=== PATIENT | female | born 1965 | race Caucasian/White ===

== ENCOUNTER 2023-07-24 14:53 | Outpatient (AMB) | payer BC, SELFPAY ==
--- NOTE | 2023-07-24 14:55 | MHC.OFFVIS ---
Intake Vital Signs 07/24/23 14:58 Height 5 ft 3 in Weight 214 lb BMI 37.9 BP 112/70 Blood Pressure Location Lt brachial Position Sitting Pulse 75 Pulse Source Pulse Oximeter Pulse Oximetry (%) 95 Oxygen Delivery Method Room Air Intake Visit Reasons: cough Body Cleaner Required: No Allergies erythromycin base Adverse Reaction (Severe, Verified 07/24/23 15:00) Stomach Upset HPI HPI Comments History of Present Illness Details The patient is here for pulmonary evaluation. The patient is a 58 year woman with a known history of nonischemic cardiomyopathy presenting with a worsening cough. Apparently the patient was in her usual state health until the last few months. The patient started developing some chest tightness and coughing. Nonproductive in nature. Moderate severity. Associated with some wheezing. She states that she does have a where congenital heart disease condition. Her ejection fraction has been stable 45-50%. The patient was referred to a heart failure specialist. Initially she had been on metoprolol 12.5 mg tolerating that then she was switched over to bisoprolol and for some reason she started developing some increasing cough and chest tightness. She felt that was the medication but she was not sure. The dose was similar. There both non selective beta blockers. Ultimately she was able to come off the bisoprolol and go back on the metoprolol and the patient has actually been feeling better. Meantime she was also started on Breo which she takes daily. She is wondering if she needs to continue the medication. The patient does have a rescue medication. the patient did undergo pulmonary function studies which I personally reviewed her there in the actually were reassuring. No evidence of any obstruction. In addition to that the patient has been complaining of increasing daytime drowsiness with an Bartow score that is elevated. With the underlying cardiac history the patient is referred for home sleep study. She did have it at [facility]. We did review the results the patient does have [id number] sleep apnea. In view of her cardiovascular risk factors and her ongoing symptoms of daytime drowsiness she needs to start CPAP therapy as well as possible. I will make arrangements for her to get a an APAP machine from local [email or web address]. The patient was wondering about how long to stay on the Breo. She does have a trip to [place] plan. The patient should continue the medication. Will also recommend starting Singulair. When she gets back from her trip she can start weaning down the Breo to off. She can use her rescue inhaler as needed hopefully she will not require any additional respiratory therapy. Will follow-up in 3 4 months with her CPAP to follow-up response to therapy. [facility] Medical History (Updated 07/26/23 @ 23:22 by Austin Johnson MD) Non-ischemic cardiomyopathy SHANNON (obstructive sleep apnea) Chronic cough Asthma Social History (Updated 07/24/23 @ 15:07 by LUIS Fabian) Patient Tobacco Use Status: Former Tobacco user Tobacco use type: Cigarette Years Smoked: 25 Years Review of Systems Const Reports daytime sleepiness, Reports snoring and Reports stops breathing during sleep Eyes Reports no additional complaints ENT Reports nasal congestion and Reports nasal discharge Card Denies chest pain Resp Reports cough, Reports snoring and Reports wheezing GI Reports no additional complaints Musc Reports no additional complaints Skin/Breast Denies rash Christiano/Lymph Denies lymphadenopathy Aller/Immun Reports wheezing Physical Exam Vital Signs: Last Vital Signs Pulse 75 07/24/23 14:58 BP 112/70 07/24/23 14:58 Pulse Ox 95 07/24/23 14:58 Oxygen Delivery Method Room Air 07/24/23 14:58 BMI result Body Mass Index 37.9 Const General: comfortable Orientation/consciousness: patient oriented x3 HEENT Head: Yes normocephalic Neck Neck: Yes supple Chest Chest palpation & inspection: normal inspection of the chest Resp Effort & Inspection: normal respiratory effort Auscultation: clear to auscultation bilaterally Cardio Heart sounds: S1 normal heart sound present and S2 normal heart sound present GI Palpation (GI): Soft to palpation Skin General skin exam: no rashes or lesions noted Neuro General: patient oriented x3 Extrem General: Yes no clubbing, cyanosis or edema Assessment & Plan Assessment & Plan (1) Asthma: Code(s): J45.909 - Unspecified asthma, uncomplicated Qualifiers: Asthma severity: moderate Asthma persistence: persistent Asthma complication type: uncomplicated Qualified Code(s): J45.40 - Moderate persistent asthma, uncomplicated (2) Chronic cough: Code(s): R05.3 - Chronic cough (3) SHANNON (obstructive sleep apnea): Code(s): G47.33 - Obstructive sleep apnea (adult) (pediatric) (4) Non-ischemic cardiomyopathy: Code(s): I42.8 - Other cardiomyopathies Plan Start Singulair at night Continue Breo daily until she returns from her trip to [place], then she can wean off LAURA as needed start Gabapentin 1-2 cap QHS for sleep Start APAP F/U 3-4 months with her PAP to assess Medications: New gabapentin 200 mg (2 x 100 mg) PO BEDTIME 30 days 60 caps 6RF montelukast (Singulair) 10 mg PO BEDTIME 30 days 30 tabs 11RF J45.909 - Unspecified asthma, uncomplicated Coding Level of Care Code New Pt Level 4 (08865) Diagnoses Moderate persistent asthma without complication J45.40 Asthma severity: moderate Asthma persistence: persistent Asthma complication type: uncomplicated Chronic cough R05.3 SHANNON (obstructive sleep apnea) G47.33 Non-ischemic cardiomyopathy I42.8 Time Spent (min) 40
[2023-07-24 14:58] VITALS: BP 112/70; PULSE 75; O2SAT 95; BMI 37.9
== END 2023-07-24 15:39 | disposition home or self-care (01) ==
PROVIDERS: PCP Physician Assistant Medical; Visit Provider Hospitalist
DX: J45.40 Moderate persistent asthma, uncomplicated (principal); R05.3 Chronic cough; G47.33 Obstructive sleep apnea (adult) (pediatric); I42.8 Other cardiomyopathies
CPT/HCPCS: 99204

== ENCOUNTER → 2023-07-24 14:53 | Outpatient (BNVA) | payer BC, SELFPAY | PROVIDERS: PCP Internal Medicine; Visit Provider Hospitalist ==

== ENCOUNTER 2023-11-03 11:13 | Outpatient (AMB) | payer BC, SELFPAY ==
[2023-11-03 11:17] VITALS: PULSE 88; O2SAT 97; BMI 38.8
--- NOTE | 2023-11-03 11:17 | MHC.OFFVIS ---
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 Apparently the patient was in her usual state health until the last few months. The patient started developing some chest tightness and coughing. Nonproductive in nature. Moderate severity. Associated with some wheezing. She states that she does have a where congenital heart disease condition. Her ejection fraction has been stable 45-50%. The patient was referred to a heart failure specialist. Initially she had been on metoprolol 12.5 mg tolerating that then she was switched over to bisoprolol and for some reason she started developing some increasing cough and chest tightness. She felt that was the medication but she was not sure. The dose was similar. There both non selective beta blockers. Ultimately she was able to come off the bisoprolol and go back on the metoprolol and the patient has actually been feeling better. Meantime she was also started on Breo which she takes daily. She is wondering if she needs to continue the medication. The patient does have a rescue medication. the patient did undergo pulmonary function studies which I personally reviewed her there in the actually were reassuring. No evidence of any obstruction. In addition to that the patient has been complaining of increasing daytime drowsiness with an [place] score that is elevated. With the underlying cardiac history the patient is referred for home sleep study. She did have it at [facility]. We did review the results the patient does have [id number] sleep apnea. In view of her cardiovascular risk factors and her ongoing symptoms of daytime drowsiness she needs to start CPAP therapy as well as possible. I will make arrangements for her to get a an APAP machine from local [employer]. The patient was wondering about how long to stay on the Breo. She does have a trip to [place] plan. The patient should continue the medication. Will also recommend starting Singulair. When she gets back from her trip she can start weaning down the Breo to off. She can use her rescue inhaler as needed hopefully she will not require any additional respiratory therapy. Will follow-up in 3 4 months with her CPAP to follow-up response to therapy. 11/03/2023 the patient is here for a pulmonary follow-up visit. Overall she is doing very well. She did get the CPAP. The CPAP therapy has been affecting beneficial. She does use it every night for more than 4 hours a night. She does feel better and she is having less daytime drowsiness. She has not having any significant snoring. She does use a nasal mask and is irritating her face. We did talk about try any P 10 nasal pillows. I think she will do better with that. She has ear piercing so we have to just see how she does with that. The patient has an AHI now of 0.6 which is reassuring. Her average pressure is around 9 cm pressure. As far as her asthma seems to be well-controlled. She has no longer needs the maintenance inhaler. She did get the Singulair but she did not take it because she was not sure what it was. I reassured her that it was for her allergic asthma. She is going to take it for now and then she is going to uses seasonally when her allergies are more significant. Otherwise patient is without other complaints. She will follow-up in a year's time. [facility] Medical History (Updated 11/03/23 @ 22:42 by Austin Johnson MD) Non-ischemic cardiomyopathy SHANNON (obstructive sleep apnea) Chronic cough Asthma Social History (Updated 07/24/23 @ 15:07 by LUIS Fabian) Patient Tobacco Use Status: Former Tobacco user Tobacco use type: Cigarette Years Smoked: 25 Years Review of Systems Const Reports daytime sleepiness Eyes Reports no additional complaints ENT Reports nasal congestion and Reports nasal discharge Card Denies chest pain Resp Reports cough and Denies wheezing GI Reports no additional complaints Musc Reports no additional complaints Skin/Breast Denies rash Christiano/Lymph Denies lymphadenopathy Aller/Immun Denies wheezing Physical Exam Vital Signs: Last Vital Signs Pulse 88 11/03/23 11:17 Pulse Ox 97 11/03/23 11:17 Oxygen Delivery Method Room Air 11/03/23 11:17 BMI result Body Mass Index 38.8 Const General: comfortable Orientation/consciousness: patient oriented x3 HEENT Head: Yes normocephalic Neck Neck: Yes supple Chest Chest palpation & inspection: normal inspection of the chest Resp Effort & Inspection: normal respiratory effort Auscultation: clear to auscultation bilaterally Cardio Heart sounds: S1 normal heart sound present and S2 normal heart sound present GI Palpation (GI): Soft to palpation Skin General skin exam: no rashes or lesions noted Neuro General: patient oriented x3 Extrem General: Yes no clubbing, cyanosis or edema Assessment & Plan Assessment & Plan (1) Asthma: Code(s): J45.909 - Unspecified asthma, uncomplicated Category: Medical Qualifiers: Asthma complication type: uncomplicated Asthma persistence: intermittent Asthma severity: mild Qualified Code(s): J45.20 - Mild intermittent asthma, uncomplicated (2) Chronic cough: Code(s): R05.3 - Chronic cough Category: Medical (3) SHANNON (obstructive sleep apnea): Code(s): G47.33 - Obstructive sleep apnea (adult) (pediatric) Category: Medical (4) Non-ischemic cardiomyopathy: Code(s): I42.8 - Other cardiomyopathies Category: Medical Plan restart Singulair at night LAURA as needed stopped Gabapentin 1-2 cap QHS for sleep continue APAP F/U 12 month Coding Level of Care Code Est Pt Level 4 (92989) Diagnoses Mild intermittent asthma without complication J45.20 Asthma complication type: uncomplicated Asthma persistence: intermittent Asthma severity: mild Chronic cough R05.3 SHANNON (obstructive sleep apnea) G47.33 Non-ischemic cardiomyopathy I42.8 Time Spent (min) 16
== END 2023-11-03 11:53 | disposition home or self-care (01) ==
PROVIDERS: PCP Physician Assistant Medical; Visit Provider Hospitalist
DX: J45.20 Mild intermittent asthma, uncomplicated (principal); R05.3 Chronic cough; G47.33 Obstructive sleep apnea (adult) (pediatric); I42.8 Other cardiomyopathies
CPT/HCPCS: 99214

== ENCOUNTER → 2023-11-03 11:13 | Outpatient (BNVA) | payer BC, SELFPAY | PROVIDERS: PCP Physician Assistant Medical; Visit Provider Hospitalist | DX: J45.909 Unspecified asthma, uncomplicated (principal) ==

== ENCOUNTER 2025-03-03 08:48 | Outpatient (AMB) | payer BC, SELFPAY ==
--- NOTE | 2025-03-03 08:49 | MHC.OFFVIS ---
Vital Signs 03/03/25 08:50 Height 5 ft 3 in Weight 241 lb 6.499 oz BMI 42.8 BP 120/64 Blood Pressure Location Lt brachial Position Sitting Pulse 74 Pulse Source Pulse Oximeter Pulse Oximetry (%) 95 Oxygen Delivery Method Room Air Intake Visit Reasons: cough Site Inspector Required: No Accompanied by: Self / Same As Patient Allergies bee pollen (bee stings) Allergy (Severe, Verified 03/03/25 08:56) Anaphylaxis Iodinated Contrast Media (IV Contrast Dye) Allergy (Severe, Verified 03/03/25 08:56) pain erythromycin base Adverse Reaction (Severe, Verified 11/03/23 11:18) Stomach Upset HPI Comments Details: The patient is a 59 year woman with a known history of nonischemic cardiomyopathy presenting with a worsening cough. Apparently the patient was in her usual state health until the last few months. The patient started developing some chest tightness and coughing. Nonproductive in nature. Moderate severity. Associated with some wheezing. She states that she does have a where congenital heart disease condition. Her ejection fraction has been stable 45-50%. The patient was referred to a heart failure specialist. Initially she had been on metoprolol 12.5 mg tolerating that then she was switched over to bisoprolol and for some reason she started developing some increasing cough and chest tightness. She felt that was the medication but she was not sure. The dose was similar. There both non selective beta blockers. Ultimately she was able to come off the bisoprolol and go back on the metoprolol and the patient has actually been feeling better. Meantime she was also started on Breo which she takes daily. She is wondering if she needs to continue the medication. The patient does have a rescue medication. the patient did undergo pulmonary function studies which I personally reviewed her there in the actually were reassuring. No evidence of any obstruction. In addition to that the patient has been complaining of increasing daytime drowsiness with an [place] score that is elevated. With the underlying cardiac history the patient is referred for home sleep study. She did have it at [facility]. We did review the results the patient does have [id number] sleep apnea. In view of her cardiovascular risk factors and her ongoing symptoms of daytime drowsiness she needs to start CPAP therapy as well as possible. I will make arrangements for her to get a an APAP machine from local DME company. The patient was wondering about how long to stay on the Breo. She does have a trip to [place] plan. The patient should continue the medication. Will also recommend starting Singulair. When she gets back from her trip she can start weaning down the Breo to off. She can use her rescue inhaler as needed hopefully she will not require any additional respiratory therapy. Will follow-up in 3 4 months with her CPAP to follow-up response to therapy. 11/03/2023 the patient is here for a pulmonary follow-up visit. Overall she is doing very well. She did get the CPAP. The CPAP therapy has been affecting beneficial. She does use it every night for more than 4 hours a night. She does feel better and she is having less daytime drowsiness. She has not having any significant snoring. She does use a nasal mask and is irritating her face. We did talk about try any P 10 nasal pillows. I think she will do better with that. She has ear piercing so we have to just see how she does with that. The patient has an AHI now of 0.6 which is reassuring. Her average pressure is around 9 cm pressure. As far as her asthma seems to be well-controlled. She has no longer needs the maintenance inhaler. She did get the Singulair but she did not take it because she was not sure what it was. I reassured her that it was for her allergic asthma. She is going to take it for now and then she is going to uses seasonally when her allergies are more significant. Otherwise patient is without other complaints. She will follow-up in a year's time. 03/03/2025 the patient is here for pulmonary follow-up visit. Overall the patient has been doing well. She has been using her CPAP every night. CPAP therapy has been affecting beneficial. AHI is down to 0.7. She is using a nasal mask. She did try the nasal pillows but it was hurting her nose. No significant air leakage through the mouth. The patient is getting supplies through her [employer] company, [employer]. I will send a script for additional supplies. From an asthma standpoint she is doing well. She is now on Breo 100 and she is tolerating it well. She does use it daily. She has not had to use his rescue inhaler. She stopped using the Singulair. The patient is also participating in the lung cancer screening program. We did look at the last CT scan that she had back in February 2024 in [place]. I personally reviewed the images demonstrating a 5 mm pulmonary nodule in the fissure on the right hemithorax. This is consistent with a benign process likely a lymph node. She is scheduled to have a repeat CAT scan as part of the lung cancer screening program in the coming weeks. She can always let me know so I can look at it and make sure that is stable. Otherwise the patient is doing well will follow-up in a year's time if she has any issues prior to the next visit she can always call for further recommendations. [facility] Medical History (Updated 11/03/23 @ 22:42 by Austin Johnson MD) Non-ischemic cardiomyopathy SHANNON (obstructive sleep apnea) Chronic cough Asthma Social History Patient Tobacco Use Status: Former Tobacco user Tobacco use type: Cigarette Years Smoked: 25 Years Review of Systems Const Denies daytime sleepiness Eyes Reports no additional complaints ENT Reports nasal congestion and Reports nasal discharge Card Denies chest pain Resp Reports cough and Denies wheezing GI Reports no additional complaints Musc Reports no additional complaints Skin/Breast Denies rash Neuro Reports no additional complaints Endo Reports no additional complaints Christiano/Lymph Denies lymphadenopathy Aller/Immun Denies wheezing Physical Exam Vital Signs: Last Vital Signs Pulse 74 03/03/25 08:50 BP 120/64 03/03/25 08:50 Pulse Ox 95 03/03/25 08:50 Oxygen Delivery Method Room Air 03/03/25 08:50 BMI result Body Mass Index 42.8 Const General: comfortable Orientation/consciousness: patient oriented x3 HEENT Head: Yes normocephalic Neck Neck: Yes supple Chest Chest palpation & inspection: normal inspection of the chest Resp Effort & Inspection: normal respiratory effort Auscultation: clear to auscultation bilaterally Cardio Heart sounds: S1 normal heart sound present and S2 normal heart sound present GI Palpation (GI): Soft to palpation Skin General skin exam: no rashes or lesions noted Neuro General: patient oriented x3 Extrem General: Yes no clubbing, cyanosis or edema Assessment & Plan Assessment & Plan (1) Asthma: Code(s): J45.909 - Unspecified asthma, uncomplicated Category: Medical Qualifiers: Asthma complication type: uncomplicated Asthma persistence: intermittent Asthma severity: mild Qualified Code(s): J45.20 - Mild intermittent asthma, uncomplicated (2) Chronic cough: Code(s): R05.3 - Chronic cough Category: Medical (3) SHANNON (obstructive sleep apnea): Code(s): G47.33 - Obstructive sleep apnea (adult) (pediatric) Category: Medical (4) Non-ischemic cardiomyopathy: Code(s): I42.8 - Other cardiomyopathies Category: Medical Plan stopped Singulair at night LAURA as needed continue Breo 100 daiy continue APAP (APRIA) 6-12 F/U 12 month Coding Level of Care Code Est Pt Level 4 (54191) Diagnoses Mild intermittent asthma without complication J45.20 Asthma complication type: uncomplicated Asthma persistence: intermittent Asthma severity: mild Chronic cough R05.3 SHANNON (obstructive sleep apnea) G47.33 Non-ischemic cardiomyopathy I42.8 Time Spent (min) 17
[2025-03-03 08:50] VITALS: BP 120/64; PULSE 74; O2SAT 95; BMI 42.8
--- OUTSIDE RECORDS SUMMARY | 2025-03-03 09:07 | XMS_ITS | Encounter Summary ---
Author Organization [facility] Address [address] [place] [address] Care Team Providers Care Administrative Support Specialist Name Role Phone uAdra Roca PA-C Primary Care Provi narciso Marixa Rothman SADDLE MECHANIC Unavailable Carlos Vasquez MD Unavailable Unavailable Encounter Details Date Type Department Care Team (Late st Contact Info) Description 07/07/2023 Scanned Document [address] [phone] Primary Care, Scan Social History Tobacco Use Types Packs/Day Years Used Date Smoking Tobacco: Former Cigarettes Smokeless Tobacco: Former Alcohol Use Standard Drinks/Week Comments Yes 0 (1 standard drink = 0.6 oz pur e alcohol) PHQ-2 Answer Date Recorded PHQ-2 Total Score 2 06/26/2023 Comments Unknown Sex and Gender Information Value Date Recorded Sex Assigned at Female 06/15/2023 3:57 PM EST Legal Sex Female 9:58 AM EST Gender Identity Female 06/15/2023 3:57 PM EST Sexual Orientation Heterosexual (straight) 06/15 3:57 PM EST documented as of this encounter Plan of Treatment Upcoming Encounters Date Type Department Care Team (Late st Contact Info) Description 06/05/2025 9:30 AM EST Office Visit [address] [phone] Audra Roca PA-C [address] [place] [id number] 01/08/2026 8:30 AM EDT Office Visit [facility] [address] [place] [address] Audra Roca PA-C [address] [place] [address] documented as of this encounter Visit Diagnoses Not on filedocumented in this encounter Care Teams Administrative Support Specialist Relationship Specialty Start Date End Date Audra Roca PA-C [address] [place] [address] PCP - General Internal Medicine 06/26/23 Marixa Rothman NP [facility] [address] [place] [address] Referring Provider 10/26/23 Carlos Vasquez MD [facility] [address] [place] [address] Referring Provider Gastroenterology 10/26/23 Sandra Thurston Physician Cardiology-Scan 10/19/23 documented as of this encounter
--- OUTSIDE RECORDS SUMMARY | 2025-03-03 09:07 | XMS_ITS | Continuity of Care Document ---
Author Organization [facility] Address [address] [facility] [address] [place] [id number] Insurance Providers Payer Plan Claims Address Claims Phone Policy Number Group Number Relation Employer Guarantor Name Guarantor Guarantor Address Guarantor Phone [employer] [address], [place] [id number] Self Rebecca Rolle 1965 [address] [address] [employer] [address], [place] [address] [id number] Spouse Unknown Unknown [address] [place], [place] [address] PPO [address], [place] [address] [id number] Self Rebecca Rolle 1965 [address] [place] [address] Problems Unknown Problems Results Test Result Date/Time Value / Unit Interp. Refere nce Range Comp. Metabolic Panel (14)[3 [id number]] Collected: 06/02/2024 09:13 PM Specimen Received: 06/02/2024 05:00 AM Source: [facility] Glucose [[id number]] 06/13/2024 08:28 PM TNP mg/dL [facility] was unable to collec t sufficient specimen to perform thefollowing test(s), and is providing the patient with re-collectioninstructions. BUN [[id number]] 06/13/2024 08:28 PM TNP Test not performed Creatinine [[id number]] 06/13/2024 08:28 PM TNP Test not performed Sodium [[id number]] 06/13/2024 08:28 PM TNP Test not performed Potassium [[id number]] 06/13/2024 08:28 PM TNP Test not performed Chloride [[id number]] 06/13/2024 08:28 PM TNP Test not performed Carbon Dioxide, Total [265981] 06/13/2024 08:28 PM TNP Test not performed Calcium [120878] 06/13/2024 08:28 PM TNP Test not performed Protein, Total [[id number]] 06/13/2024 08:28 PM TNP Test not performed Albumin [238612] 06/13/2024 08:28 PM TNP Test not performed Bilirubin, Total [756959] 06/13/2024 08:28 PM TNP Test not performed Alkaline Phosphatase [420428] 06/13/2024 08:28 PM TNP Test not performed AST (SGOT) [[id number]] 06/13/2024 08:28 PM TNP Test not performed ALT (SGPT) [[id number]] 06/13/2024 08:28 PM TNP Test not performed Lipid Panel[[id number]] Collected: 06/02/2024 09:13 PM Specimen Received: 06/02/2024 05:00 AM Source: [facility] Cholesterol, Total [[id number]] 06/13/2024 08:28 PM TNP mg/dL [facility] was unable to collec t sufficient specimen to perform thefollowing test(s), and is providing the patient with re-collectioninstructions. Triglycerides [088072] 06/13/2024 08:28 PM TNP Test not performed HDL Cholesterol [[id number]] 06/13/2024 08:28 PM TNP Test not performed VLDL Cholesterol Leon [[id number]] 06/13/2024 08:28 PM TNP mg/dL Unable to calculate result s arlyn non-numeric result obtained forcomponent test. Hemoglobin A1c[[id number]] Collected: 06/02/2024 09:13 PM Specimen Received: 06/02/2024 05:00 AM Source: [facility] Hemoglobin A1c [[id number]] 06/04/2024 02:44 PM TNP % [facility] was unable to collec t sufficient specimen to perform thefollowing test(s), and is providing the patient with re-collectioninstructions. . Prediabetes: 5.7 - 6.4 Diabetes: >6.4 Glycemic control for adults with diabetes: 7.0 Request Problem[[id number]] Collected: 06/02/2024 09:13 PM Specimen Received: 06/02/2024 05:00 AM Source: [facility] Request Problem [[id number]] 06/04/2024 02:44 PM TNP [facility] was unable to collec t sufficient specimen to perform thefollowing test(s), and is providing the patient with re-collectioninstructions. TEST: [id number] Hemoglobin A1c Request Problem[[id number]] Collected: 06/02/2024 09:13 PM Specimen Received: 06/02/2024 05:00 AM Source: [facility] Request Problem [[id number]] 06/13/2024 08:28 PM TNP [facility] was unable to collec t sufficient specimen to perform thefollowing test(s), and is providing the patient with re-collectioninstructions. TEST: [id number] Comp. Metabolic Panel (14) [id number] Lipid Panel Allergies, adverse reactions, alerts No known allergies and adverse reactions Medications No administered medications reported Vital Signs No vital signs reported Social History No smoking Hx information available
--- OUTSIDE RECORDS SUMMARY | 2025-03-03 09:07 | XMS_ITS | Continuity of Care Document ---
Author Organization [facility] [address] [place] [address] Phone [phone] Care Team Providers Care Surveyor Geodetic Name Role Phone Audra Roca Care Team Information Re ceiver [phone] Social History Type Date Description Comments Sex Female Sex Unknown Medical Devices Description No Information Available Encounters Description No Information Available Assessments Description No Information Available Plan of Treatment No Information Available Functional Status Description No Information Available Mental Status Description No Information Available Referrals Description No Information Available
--- OUTSIDE RECORDS SUMMARY | 2025-03-03 09:07 | XMS_ITS | Continuity of Care Document ---
Author Organization [facility] Address [address] [facility] [address] [place] [id number] Insurance Providers Payer Plan Claims Address Claims Phone Policy Number Group Number Relation Employer Guarantor Name Guarantor Guarantor Address Guarantor Phone [employer] [address], [place] [id number] Self Rebecca Rolle 1965 [address] [place] [address] [employer] - [place] [address], [place] [address] [id number] 1 Spouse Unknown Unknown [address] [place] [address], [place] [address] PPO [address], [place] [address] [id number] Self Rebecca Rolle 1965 [address] [place] [address] Problems Unknown Problems Results Test Result Date/Time Value / Unit Interp. Refere nce Range Comp. Metabolic Panel (14)[3 [id number]] Collected: 06/02/2024 09:13 PM Specimen Received: 06/02/2024 05:00 AM Source: [facility] Glucose [[id number]] 06/13/2024 08:28 PM TNP mg/dL [facility] was unable to collec t sufficient specimen to perform thefollowing test(s), and is providing the patient with re-collectioninstructions. BUN [[id number]] 06/13/2024 08:28 PM TNP Test not performed Creatinine [[id number]] 06/13/2024 08:28 PM TNP Test not performed Sodium [[id number]] 06/13/2024 08:28 PM TNP Test not performed Potassium [[id number]] 06/13/2024 08:28 PM TNP Test not performed Chloride [[id number]] 06/13/2024 08:28 PM TNP Test not performed Carbon Dioxide, Total [239452] 06/13/2024 08:28 PM TNP Test not performed Calcium [557216] 06/13/2024 08:28 PM TNP Test not performed Protein, Total [858566] 06/13/2024 08:28 PM TNP Test not performed Albumin [410776] 06/13/2024 08:28 PM TNP Test not performed Bilirubin, Total [527315] 06/13/2024 08:28 PM TNP Test not performed Alkaline Phosphatase [018768] 06/13/2024 08:28 PM TNP Test not performed AST (SGOT) [348220] 06/13/2024 08:28 PM TNP Test not performed ALT (SGPT) [438046] 06/13/2024 08:28 PM TNP Test not performed Lipid Panel[[id number]] Collected: 06/02/2024 09:13 PM Specimen Received: 06/02/2024 05:00 AM Source: [facility] Cholesterol, Total [[id number]] 06/13/2024 08:28 PM TNP mg/dL [facility] was unable to collec t sufficient specimen to perform thefollowing test(s), and is providing the patient with re-collectioninstructions. Triglycerides [977316] 06/13/2024 08:28 PM TNP Test not performed HDL Cholesterol [[id number]] 06/13/2024 08:28 PM TNP Test not performed VLDL Cholesterol Leon [[id number]] 06/13/2024 08:28 PM TNP mg/dL Unable to calculate result s arlyn non-numeric result obtained forcomponent test. Hemoglobin A1c[[id number]] Collected: 06/02/2024 09:13 PM Specimen Received: 06/02/2024 05:00 AM Source: [facility] Hemoglobin A1c [[id number]] 06/04/2024 02:44 PM TNP % [facility] was unable to collec t sufficient specimen to perform thefollowing test(s), and is providing the patient with re-collectioninstructions. . Prediabetes: 5.7 - 6.4 Diabetes: >6.4 Glycemic control for adults with diabetes: 7.0 Request Problem[[id number]] Collected: 06/02/2024 09:13 PM Specimen Received: 06/02/2024 05:00 AM Source: [facility] Request Problem [[id number]] 06/04/2024 02:44 PM TNP [facility] was unable to collec t sufficient specimen to perform thefollowing test(s), and is providing the patient with re-collectioninstructions. TEST: [id number] Hemoglobin A1c Request Problem[[id number]] Collected: 06/02/2024 09:13 PM Specimen Received: 06/02/2024 05:00 AM Source: [facility] Request Problem [[id number]] 06/13/2024 08:28 PM TNP [facility] was unable to collec t sufficient specimen to perform thefollowing test(s), and is providing the patient with re-collectioninstructions. TEST: [id number] Comp. Metabolic Panel (14) [id number] Lipid Panel Allergies, adverse reactions, alerts No known allergies and adverse reactions Medications No administered medications reported Vital Signs No vital signs reported Social History No smoking Hx information available
--- OUTSIDE RECORDS SUMMARY | 2025-03-03 09:07 | XMS_ITS | Encounter Summary ---
Author Organization [facility] Address [address] [place] [address] Care Team Providers Care Director Of Science Name Role Phone Pcp, No Primary Care Provider Audra Johnson PA-C Primary Care Provi narciso Marixa Rothman NP Unavailable Carlos Vasquez MD Unavailable Unavailable Encounter Details Date Type Department Care Team (Late st Contact Info) Description 06/15/2023 Telephone [facility] [address] [place] [address] Pcp, No Social History Tobacco Use Types Packs/Day Years Used Date Smoking Tobacco: Never Assessed Comments Unknown Sex and Gender Information Value Date Recorded Sex Assigned at Female 06/15/2023 3:57 PM EST Legal Sex Female 9:58 AM EST Gender Identity Female 06/15/2023 3:57 PM EST Sexual Orientation Heterosexual (straight) 06/15 3:57 PM EST documented as of this encounter Miscellaneous Notes * Telephone Encounter - Della Bro - 06/16/2023 2:45 PM EST Pt called she did call the other office and she will be getting a nebulizer. Pt cannot go on my chart because she has not seen you yet. She said thank you * Telephone Encounter - Mandy Ingram - 06/15/2023 12:41 PM EST Pt also called regarding missed call by Audra * Telephone Encounter - Paradise Ruano - 06/15/2023 10:58 AM EST Spoke pt, I advised her to contact Audra's old office until she is seen. Pt declined she stated she doesn't want to contact them if she doesn't have to. She stated she will reach out to her cardio provider and will follow up with UC until she is seen on 06/26 documented in this encounter Plan of Treatment Upcoming Encounters Date Type Department Care Team (Late st Contact Info) Description 06/05/2025 9:30 AM EST Office Visit [address] [phone] Audra Roca PA-C [address] [place] [address] 01/08/2026 8:30 AM EDT Office Visit [address] [phone] Audra Roca PA-C [address] [place] [address] documented as of this encounter Visit Diagnoses Not on filedocumented in this encounter Care Teams Director Of Science Relationship Specialty Start Date End Date Pcp, No PCP - General General Medicine 06/15/23 06/25/23 Audra Roca PA-C [address] [place] [address] PCP - General Internal Medicine 06/26/23 Marixa Rothman NP [address] [address] Referring Provider 6/3/24 Carlos Vasquez MD [address] [place] [address] Referring Provider Gastroenterology 10/26/23 Sandra Thurston Physician Cardiology-Scan 10/19/23 documented as of this encounter
--- OUTSIDE RECORDS SUMMARY | 2025-03-03 09:07 | XMS_ITS | Encounter Summary ---
Author Organization [facility] Address [address] [place] [address] Care Team Providers Care Accounting Manager Assistant Controller Name Role Phone Audra Roca PA-C Primary Care Provi narciso Marixa Rothman NP Unavailable Carlos Vasquez MD Unavailable Unavailable Encounter Details Date Type Department Care Team (Late st Contact Info) Description 10/26/2023 Scanned Document [facility] PRIMARY CARE SCAN Primary Care, Scan Social History Tobacco Use Types Packs/Day Years Used Date Smoking Tobacco: Former Cigarettes 1 20 Smokeless Tobacco: Former Comments:Quit 15 yr- 20+ pac k year Alcohol Use Standard Drinks/Week Comments Yes 0 (1 standard drink = 0.6 oz pur e alcohol) PHQ-2 Answer Date Recorded PHQ-2 Total Score 2 10/26/2023 Physical Activity Answer Date Recorded On average, how many days pe r week do you engage in moderate to strenuous exercise (like a brisk walk)? 7 days 10/26/2023 On average, how many minutes do you exercise per day at this level? 30 min 10/26/2023 Comments No Sex and Gender Information Value Date Recorded Sex Assigned at Female 06/15/2023 3:57 PM EST Legal Sex Female 9:58 AM EST Gender Identity Female 06/15/2023 3:57 PM EST Sexual Orientation Heterosexual (straight) 06/15 3:57 PM EST documented as of this encounter Functional Status * Question Answer Date of Assessment Author Feeling nervous, anxious, or on edge 1 10/26/2023 8:22 AM EDT Elsy Brown MA Not being able to stop or co ntrol worrying 0 10/26/2023 8:22 AM MATIAST Elsy Brown MA Worrying too much about diff erent things 0 10/26/2023 8:22 AM MATIAST Elsy Brown MA Trouble relaxing 0 10/26/2023 8:22 AM EDT Elsy Prather MA Being so restless that it is hard to sit still 1 10/26/2023 8:22 AM MATIAST Elsy Brown MA Becoming easily annoyed or irritable 0 10/26/2023 8:22 AM MATIAST Elsy Brown MA Feeling afraid as if somethi ng awful might happen 1 10/26/2023 8:22 AM MATIAST Elsy Brown MA * Over the past 2 weeks, how often have you been bothered by any of the following problems? Question Answer Date of Assessment Author Patient Health Questionnaire -2 Score 2 10/26/2023 8:21 AM Elsy Slater MA * Question Answer Date of Assessment Author Patient Health Questionnaire -9 Score 5 10/26/2023 8:21 AM Elsy Slater MA * Over the last 2 weeks, how often have you been bothered by any of the following problems? Question Answer Date of Assessment Author SANDOVAL-7 Total Score 3 10/26/2023 8:22 AM Elsy Slater MA * Question Answer Date of Assessment Author PHQ-2 Total Score 2 10/26/2023 8:21 AM Elsy Slater MA Little interest or pleasure in doing things Several days 10/26/2023 8:21 AM MATIAST Sa katharina Brown MA Feeling down, depressed, or hopeless Several days 10/26/2023 8:21 AM Elsy Slater MA Trouble falling or staying asleep, or sleeping too much Not at all 10/26/2023 8:21 AM Elsy Slater MA Feeling tired or having little energy Several days 10/26/2023 8:21 AM Elsy Slater MA Poor appetite or overeating Several days 10/26/2023 8:21 AM Elsy Slater MA Feeling bad about yourself - or that you are a failure or have let yourself or your family down Not at all 10/26/2023 8:21 AM MATIAST Elsy Brown MA Trouble concentrating on things, such as reading the newspaper or watching television Several days 10/26/2023 8:21 AM MATIAST Elsy Brown MA Moving or speaking so slowly that other people could have noticed? Or the opposite - being so fidgety or restless that you have been moving around a lot more than usual. Not at all 10/26/2023 8:21 AM MATIAST Elsy Brown MA Thoughts that you would be better off or hurting yourself in some way Not at all 10/26/2023 8:21 AM MATIAST Elsy Brown MA How difficult have these problems made it for you to do your work, take care of things at home, or get along with other people? Somewhat difficult 10/26/2023 8:21 AM MATIAST Elsy Brown MA PHQ-9 Total Score 5 10/26/2023 8:21 AM MATIAST Elsy Brown MA documented as of this encounter Plan of Treatment Upcoming Encounters Date Type Department Care Team (Late st Contact Info) Description 06/05/2025 9:30 AM EST Office Visit [address] [phone] Audra Roca PA-C [address] [place] [address] 01/08/2026 8:30 AM EDT Office Visit [address] [phone] Audra Roca PA-C [address] [place] [address] documented as of this encounter Visit Diagnoses Not on filedocumented in this encounter Care Teams Accounting Manager Assistant Controller Relationship Specialty Start Date End Date Audra Roca PA-C [address] [place] [address] PCP - General Internal Medicine 06/26/23 Marixa Rothman NP [address] [facility] [address] [place] [address] Referring Provider 10/26/23 Carlos Vasquez MD [address] [facility] [address] [place] [address] Referring Provider Gastroenterology 10/26/23 Sandra Thurston Physician Cardiology-Scan 10/19/23 documented as of this encounter
--- OUTSIDE RECORDS SUMMARY | 2025-03-03 09:07 | XMS_ITS | Encounter Summary ---
Author Organization [facility] Address [address] [place] [address] Care Team Providers Care Courier Delivery Driver Name Role Phone Audra Roca PA-C Primary Care Provi narciso Marixa Rothman VAMP PRESSER Unavailable Carlos Vasquez MD Unavailable Unavailable Encounter Details Date Type Department Care Team (Late st Contact Info) Description 07/07/2023 Scanned Document [address] [phone] Primary Care, Scan Social History Tobacco Use [...] Description 06/05/2025 9:30 AM EST Office Visit [address] [phone] Audra Roca PA-C [address] [place] [address] 01/08/2026 8:30 AM EDT Office Visit [facility] [place] [facility] [address] [place] [address] Audra Roca PA-C [address] [place] [address] documented as of this encounter Visit Diagnoses Not on filedocumented in this encounter Care Teams Courier Delivery Driver Relationship Specialty Start Date End Date Audra Roca PA-C [address] [place] [address] PCP - General Internal Medicine 06/26/23 Marixa Rothman NP 836 [facility] [address] [place] [address] Referring Provider 10/26/23 Carlos Vasquez MD 836 [facility] [address] [place] [address] Referring Provider Gastroenterology 10/26/23 Sandra Thurston Physician Cardiology-Scan 10/19/23 documented as of this encounter
--- OUTSIDE RECORDS SUMMARY | 2025-03-03 09:07 | XMS_ITS | Encounter Summary ---
Author Organization [facility] Address [address] [place] [address] Care Team Providers Care Human Services Care Specialist Name Role Phone Pcp, No Primary Care Provider Audra Johnson PA-C Primary Care Provi narciso Marixa Rothman GEEK SQUAD MANAGER Unavailable Carlos Vasquez MD Unavailable Unavailable Reason for Visit * Reason Onset Date Comments Difficulty Breathing 06/15/2023 Encounter Details Date Type Department Care Team (Late st Contact Info) Description 06/15/2023 Nurse Triage [facility] [address] [place] [phone] Grisel Archer RN [address] [place] [address] Social History Tobacco Use Types Packs/Day Years Used Date Smoking Tobacco: Never Assessed Comments Unknown Sex and Gender Information Value Date Recorded Sex Assigned at Female 06/15/2023 3:57 PM EST Legal Sex Female 9:58 AM EST Gender Identity Female 06/15/2023 3:57 PM EST Sexual Orientation Heterosexual (straight) 06/15 3:57 PM EST documented as of this encounter Miscellaneous Notes * Telephone Encounter - Erik Campo RN - 06/15/2023 12:16 PM EST Spoke with: Patient Reason for call: Difficulty Breathing Escalation needed: Yes Appointment Scheduled: No Triage Disposition See Today in Office Comment: Unable to locate appointment to schedule patient in office. Call Transferred to PCP Comment: Spoke with commercial front load driver, plan for PCP to attempt contact again (patient missed call earlier). Call information routed to clinical pool. Patient/Caregiver understands and will follow disposition? Patient/caregiver states understanding and plans to to follow disposition Triage care advice: Care Advice Patient/Caregiver understands and will follow care advice?: Patient/caregiver states understanding and plans to follow advice Unable to schedule in office at this time- unable to locate appropriate appointment due to availability. Spoke with commercial front load driver, plan to have PCP/office clinical reach back out. If you have any worsening of symptoms, please present to the Emergency Room at that time. If you have any questions or concerns about your symptoms or scheduling, please don't hesitate to call us back. Reason for Disposition ??? Quick-relief asthma medicine (e.g., albuterol /salbutamol, levalbuterol by inhaler or nebulizer) is needed more frequently than every 4 hours to keep you comfortable Answer Assessment - Initial Assessment Questions 1. RESPIRATORY STATUS: Describe your breathing? (e.g., wheezing, shortness of breath, unable to speak, severe coughing) Cough - dry wheezy cough. Wheezy breathing. 2. ONSET: When did this asthma attack begin? Months. Yueving was in hospital, has gone to Urgent Care. / - on prednisone for 12 days. 3. TRIGGER: What do you think triggered this attack? (e.g., URI, exposure to pollen or other allergen, tobacco smoke) Nothing at her house. Daughter's house - couch has feathers. Believes could be related to bisoprolol she was on until January to Mar when she switched back tometoprolol but no change. Came off metoprolol 2-3 weeks ago with cardiology. 5. SEVERITY: How bad is this attack? - MILD: No SOB at rest, mild SOB with walking, speaks normally in sentences, can lie down, no retractions, pulse < 100. (GREEN Zone: PEFR 80-100%) - MODERATE: SOB at rest, SOB with minimal exertion and prefers to sit, cannot lie down flat, speaksin phrases, mild retractions, audible wheezing, pulse 100- 120. (YELLOW Zone: PEFR 50-79%) - SEVERE: Struggling for each breath, speaks in single words, struggling to breathe, sitting hunched forward, retractions, usually loud wheezing, sometimes minimal wheezing because of decreased air movement, pulse > 120. (RED Zone: PEFR < 50%). Mild to moderate. Better sitting. Able to speak full sentences, no audible wheezing. 6. ASTHMA MEDICINES: What treatments have you tried? - INHALED QUICK RELIEF (RESCUE): What is your inhaled quick-relief medicine? (e.g., albuterol, salbutamol) Do you use an inhaler or a nebulizer? How frequently have you been using this medicine? - CONTROLLER (AORR-[id number]-[id number]): Do you take an inhaled steroid? (e.g., Asmanex, Flovent, Pulmicort, Qvar) Albuterol. 7. INHALED QUICK-RELIEF TREATMENTS FOR THIS ATTACK: What treatments have you given yourself so far? and How many and how often? If using an inhaler, ask, How many puffs? Note: Routine treatments are 2 puffs every 4 hours as needed. Rescue treatments are 4 puffs repeated every 20 minutes, up to three times as needed. Albuterol works for a bit. Taking up to every 2 hours 8. OTHER SYMPTOMS: Do you have any other symptoms? (e.g., chest pain, coughing up yellow sputum, fever, runny nose) NPC. Has been on antibiotics twice since February. States she missed call with Audra/her PCP earlier. Wants to get nebulizer - states Urgent Care can't prescribe nebulizer. Does not have appointment to be seen with pulmonology until July. 9. O2 SATURATION MONITOR: Do you use an oxygen saturation monitor (pulse oximeter) at home? If Yes, What is your reading (oxygen level) today? What is your usual oxygen saturation reading? (e.g., 95%) Patient states spO2 levels have been normal, not concerning her. Protocols used: ASTHMA ATTACK-A-OH documented in this encounter Plan of Treatment Upcoming Encounters Date Type Department Care Team (Late st Contact Info) Description 06/05/2025 9:30 AM EST Office Visit [address] [phone] Audra Roca PA-C [address] [place] [address] 01/08/2026 8:30 AM EDT Office Visit [facility] [address] [place] [address] Audra Roca PA-C [address] [place] [address] documented as of this encounter Visit Diagnoses Not on filedocumented in this encounter Care Teams Human Services Care Specialist Relationship Specialty Start Date End Date Pcp, No PCP - General General Medicine 06/15/23 06/25/23 Audra Roca PA-C [address] [place] [address] PCP - General Internal Medicine 06/26/23 Marixa Rothman NP 836 [facility] [address] [place] [address] Referring Provider 10/26/23 Carlos Vasquez MD 836 [facility] [address] [place] [address] Referring Provider Gastroenterology 10/26/23 Sandra Thurston Physician Cardiology-Scan 10/19/23 documented as of this encounter
--- OUTSIDE RECORDS SUMMARY | 2025-03-03 09:07 | XMS_ITS ---
Author Name [facility] Organization Unknown Results Test Name/Text Value Interpretation Date Range Source Bacteria Ur Cult SEE NOTE 12/03/2024 QU EST Bilirub Ur Ql Strip NEGATIVE Normal 12/03/2024 - [facility] WBC #/area UrnS HPF NONE SEEN Normal 12/03/2024 - [facility] Hyaline Casts #/area UrnS LPF NONE SEEN Normal 12/03/2024 - [facility] Leukocyte esterase Ur Ql Strip NEGATIVE Normal 12/03/2024 - [facility] Ketones Ur Ql Strip NEGATIVE Normal 12/03/2024 - [facility] Bacteria #/area UrnS HPF NONE SEEN Normal 12/03/2024 - [facility] Sp Gr Ur Strip 1.013 Normal 12/03/2024 1.001 - 1.035 [facility] pH Ur Strip 6.5 Normal 12/03/2024 5 - 8 [facility] Prot Ur Ql Strip NEGATIVE Normal 12/03/2024 - QU EST Hgb Ur Ql Strip NEGATIVE Normal 12/03/2024 - [facility] Appearance Ur CLEAR Normal 12/03/2024 - [facility] Service Cmnt-Imp 12/03/2024 QU EST Nitrite Ur Ql Strip NEGATIVE Normal 12/03/2024 - [facility] Squamous #/area UrnS HPF NONE SEEN Normal 12/03/2024 - [facility] Glucose Ur Ql Strip NEGATIVE Normal 12/03/2024 - [facility] Color Ur YELLOW Normal 12/03/2024 - [facility] RBC #/area UrnS HPF NONE SEEN Normal 12/03/2024 - [facility] History of Medication Use Medication Directions Dispensed Refills Start Date End Date Stat us fluticasone-vilanterol (BREO ELLIPTA) 200-25 mcg/inh inhaler Inhale 1 puff daily. 07/03/2023 active albuterol (PROVENTIL) (0.083%) 2.5 mg/3 mL nebulizer solution 06/23/2023 active albuterol (PROVENTIL HFA; VENTOLIN HFA) 108 (90 Base) MCG/ACT inhaler INHALE 1 TO 2 PUFFS BY INHALATION ROUTE EVERY 6 HOURS NEEDED 06/20/2023 active losartan (COZAAR) 50 MG tablet Take 1 tablet (50 mg total) by mouth daily. 06/17/2023 active rosuvastatin (CRESTOR) 10 MG tablet Take 1 tablet (10 mg total) by mouth daily. 06/17/2023 active famotidine (PEPCID) 20 MG tablet Take 1 tablet (20 mg total) by mouth. 02/12/2023 active ascorbic acid (VITAMIN C) 500 MG tablet Take 1 tablet (500 mg total) by mouth daily. active aspirin enteric coated (ECOTRIN LOW STRENGTH) 81 MG EC tablet Take 1 tablet (81 mg total) by mouth daily. active cholecalciferol (CHOLECALCIFEROL) 25 MCG (1000 UT) tablet Take 1 tablet (1,000 Units total) by mouth daily. active LORazepam (ATIVAN) 0.5 MG tablet Take 1 tablet (0.5 mg total) by mouth 3 times daily (every 8 hours) as needed. active Turmeric (QC TUMERIC COMPLEX PO) Take by mouth. 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 2023-06-26 ProblemAct [facility] Seasonal allergic rhinitis active 2023-06-26 ProblemAct [facility] Other hyperlipidemia active 2023-06-26 ProblemAct [facility] Anxiety active 2023-06-26 ProblemAct [facility] Morbid obesity active 2023-06-[address] History of colon polyps active 2023-06-26 ProblemAct [facility] Mild persistent asthma without complication active 2023-06-26 ProblemAct [facility] Wheezing active 2023-06-26 ProblemAct [facility] Primary hypertension active 2023-06-26 ProblemAct [facility] Family history of colon cancer active 2023-06-26 ProblemAct [facility] Nonischemic cardiomyopathy active 2023-06-26 ProblemAct [facility] Immunizations Vaccine Date Source Lot Number Status DTaP 10/23/2022 [facility] completed Encounters Encounter Type Encounter Reason Primary Diagnosis Location Date Ambulatory Encounter for general adult medical examination without abnormal findings Encounter for general adult medical examination without abnormal findings [facility] 12/01/2024 Ambulatory Follow-up Follow-up [facility] 05/23/2024 Ambulatory Encounter for general adult medical examination without abnormal findings Encounter for general adult medical examination without abnormal findings [facility] 10/26/2023 Ambulatory Wheezing Wheezing [facility] 06/26/2023 Care Team Organization Name Specialty Phone Email Start Date End Da te [facility] 06/26/2023 [facility] MARCUS ZAPATA Primary [facility] 06/26/2023 [facility] NO PCP Primary Care 06/15/2023
--- OUTSIDE RECORDS SUMMARY | 2025-03-03 09:07 | XMS_ITS | Clinical Summary ---
Author Organization Formerly [facility] Address [address] [place] [address] Care Team Providers Care Edge Beader Name Role Phone Audra Roca PA-C Primary Care Provi narciso Marixa Rothman NP Unavailable Carlos Vasquez MD Unavailable Unavailable Allergies Active Allergy Reactions Criticality Noted Date Comments Bee Venom Anaphylaxis High 06/26/2023 Erythromycin GI Intolerance/Nausea/Vomiting Low 06/26/2023 Iodinated Contrast Media Dyskinesia/Dystonia Medium Medications albuterol (PROVENTIL) (0.083%) 2.5 mg/3 mL nebulizer solution 06/23/19 24 Active famotidine (PEPCID) 20 MG tablet Take 1 tablet (20 mg total) by mouth daily. 02/13/20 23 Active rosuvastatin (CRESTOR) 10 MG tablet Take 1 tablet (10 mg total) by mouth daily. 06/17/19 24 Active ascorbic acid (VITAMIN C) 500 MG tablet Take 1 tablet (500 mg total) by mouth daily. Active Turmeric (QC TUMERIC COMPLEX PO) Take by mouth. Active cholecalciferol (CHOLECALCIFEROL ) 25 MCG (1000 UT) tablet Take 1 tablet (1,000 Units total) by mouth daily. Active losartan (COZAAR) 50 MG tablet Take 1 tablet (50 mg total) by mouth 2 times a day. 30 tablet 5 05/11/20 23 Active warfarin (COUMADIN) 2.5 MG tablet Take 1 tablet (2.5 mg total) by mouth daily. 09/09/19 24 Active loratadine (CLARITIN) 10 MG tablet Take 1 tablet (10 mg total) by mouth daily. Active LORazepam (ATIVAN) 0.5 MG tabletIndication s:Anxiety Take 1 tablet (0.5 mg total) by mouth nightly as needed for anxiety. 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 30 tablet 5 11/22/19 25 Active EPINEPHrine 0.15 mg/0.3 mL IJ auto-injectionIn dications:Bee sting allergy Inject 0.3 mL (0.15 mg total) into the thigh once as needed for allergic reaction. 2 each 12/02/19 25 Active Breo Ellipta 200-25 MCG/ACT inhalerIndicatio ns:Mild persistent asthma without complication INHALE 1 PUFF DAILY 60 each 1 01/25/20 25 Active albuterol (PROVENTIL HFA; VENTOLIN HFA) 108 (90 Base) MCG/ACT inhalerIndicatio ns:Mild persistent asthma without complication INHALE 2 PUFFS BY MOUTH EVERY 6 HOURS NEEDED FOR WHEEZE 6.7 each 1 01/25/20 25 Active fluticasone-salm eterol (ADVAIR) 250-50 mcg/inh diskus inhalerIndicatio ns:Wheezing Inhale 1 puff 2 (two) times a day. Rinse mouth out after each use 60 each 3 06/26/19 24 024 Discontinued Active Problems Problem Noted Date Diagnosed Date SHANNON (obstructive sleep apnea) 10/26/2023 Assessment & Plan (12/01/2024 2:49 PM EDT): Compliant with her CPAP. History of tobacco use 10/26/2023 Assessment & Plan (12/01/2024 2:49 PM EDT): Patient is compliant with her yearly low-dose CAT scan screen. The patient had the last one done in February 2024. There is a 5 mm nodule in the right minor fissure. Most likely benign intrapulmonary lymph node. She will be due again in 2024. We will replace the referral to [facility]. Anxiety 06/26/2023 Assessment & Plan (12/01/2024 2:49 PM EDT): Rarely takes alprazolam. Seasonal allergic rhinitis 06/26/2023 Assessment & Plan (12/01/2024 2:49 PM EDT): Takes Claritin as needed. Mild persistent asthma without complication 06/2023 Assessment & Plan (12/01/2024 2:49 PM EDT): Follows with Dr. Johnson who is a boat dispatcher out of [facility]. Has been prescribed a Breo Ellipta inhaler. Supposed to be using this daily. She was only using it sporadically. Did feel that her asthma was not well-controlled. She does use her albuterol inhaler occasionally. Patient will start using her Breo Ellipta inhaler daily. She should find that she does not need to use her rescue inhaler. If she still finds that her asthma is poorly controlled she will reach out to Dr. Johnson. History of colon polyps 06/26/2023 Assessment & Plan (12/01/2024 2:49 PM EDT): Patient's last colonoscopy was with [facility] in 2022. She will be due again in 2027. Family history of colon cancer 06/26/2023 Assessment & Plan (12/01/2024 2:49 PM EDT): Patient's last colonoscopy was with [facility] in 2022. She will be due again in 2027. 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 Will check a TSH. Other hyperlipidemia 06/26/2023 Assessment & Plan (12/01/2024 2:49 PM EDT): Patient is on rosuvastatin 10 mg daily. Will check fasting lipid profile. Primary hypertension 06/26/2023 Assessment & Plan (12/01/2024 2:49 PM EDT): Compliant with her blood pressure medications. Blood pressures have been good. Morbid obesity 06/26/2023 Assessment & Plan (12/01/2024 2:49 PM EDT): Patient is concerned about her weight and has started weight watchers. If she finds that she needs more help she will reach out. 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 No hx of HF, nml Nt BNP, mild LGE (nonspecific) 2nd to NICM. VUS at [facility] gene, RYR2 and GAA. Based on last CMR LVEF is below threshold where there is an increased risk of cardioembolic events w LVNC and coumadin or NOAC (off label) is indicated by expert opinion. Plan on repeat CMR in 04/2024. Will start coumadin today via [facility] w INR target 2-3 for LVNC primary prevention of LV thrombus. 2. ICD indications would be similar to those w HFrEF and she would currently be above threshold for primary prevention ICD. Assessment & Plan (12/01/2024 2:49 PM EDT): Follows now with [facility] cardiology. Unfortunately do not have their last notes. Patient's been asymptomatic. Her LVEF is 45 to 50%. She is now on Coumadin. Her INR's are managed by the Coumadin clinic. We will get the last notes. Patient was following with [facility] cardiology. According to their last note in 2022. Patient had an exercise treadmill stress test November 2021 in which she achieved 90% of the maximum predicted heart rate. No ischemic changes. Patient underwent a left heart catheterization in November 2021 with diagnostic angiogram showing no obstructive coronary artery disease. Her LMCA was normal, LAD was normal, left circumflex is normal and RCA had mild luminal irregularities. 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 LVEF was 50%. Patient had genetic testing however I do not have those results. Resolved Problems Problem Noted Date Diagnosed Date Resolved Date Wheezing 06/26/2023 10/26/2023 Encounters Date Type Department Care Team Description 01/21/[address] [phone] Audra Roca PA-C Mild persistent asthma without complication 12/22/2024 Orders Only [facility] [address] [facility] [place] [address] Obstetrics And Gynecology, Scan 12/02/[address] [phone] Audra Roca PA-C 12/01/2024 1:30 PM EDT Office Visit [address] [phone] Audra Roca PA-C Annual physical exam (Primary Dx); Mild persistent asthma without complication ; Family history of colon cancer; History of colon polyps; 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 ; Other hyperlipidemia ; Primary hypertension ; Morbid obesity (HCC); Nonischemic cardiomyopathy (HCC); SHANNON (obstructive sleep apnea); History of tobacco use; Screening for lung cancer; Elevated LFTs; Bee sting allergy; Seasonal allergic rhinitis, unspecified trigger; Dysuria; Anxiety 12/01/[address] [phone] Audra Roca PA-C 12/01/2024 Travel from Last 3 Months Immunizations Immunization Administration Dates Next Due DTaP 10/23/2022 Social History Tobacco Use Types Packs/Day Years Used Date Smoking Tobacco: Former Cigarettes 1 20 Smokeless Tobacco: Former Tobacco Cessation:Counseling Given: Not Answered Comments:Quit 15 yr- 20+ pack year Alcohol Use Standard Drinks/Week Comments Yes 0 (1 standard drink = 0.6 oz pur e alcohol) [facility] Utilities Answer Date Recorded In the past 12 months has e [employer], gas, oil, or water company threatened to shut off services in your home? No 05/22/2024 Social Connection and Isolat ion Panel [NHANES] Answer Date Recorded In a typical week, how many times do you talk on the phone with family, friends, or neighbors? More than three times a week 05/22/2024 Frequency of Social Gatherin gs with Friends and Family Not on file 05/22/2024 Attends [employer] Not on file 05/22 Active Member of Clubs or Organizations Not on f ile 05/22/2024 Attends Club or Organization Meetings Not on latisha e 05/22/2024 Marital Status Not on file 05/22/2024 AUDIT-C Answer Date Recorded Q1: How often do you have a drink containing alc ohol? Monthly or less 05/22/2024 Q2: How many drinks containi ng alcohol do you have on a typical day when you are drinking? 1 or 2 05/22/2024 Frequency of Binge Drinking Not on file 04/25 PHQ-2 Answer Date Recorded PHQ-2 Total Score 2 11/30/2024 Hunger Vital Sign Answer Date Recorded Within the past 12 months, y ou worried that your food would run out before you got the money to buy more. Never true 05/22/20 24 Within the past 12 months, t he food you bought just didn't last and you didn't have money to get more. Never true 05/22/2024 PRAPARE - Transportation Answer Date Re corded In the past 12 months, has l ack of transportation kept you from medical appointments or from getting medications? No 04/25 In the past 12 months, has l ack of transportation kept you from meetings, work, or from getting things needed for daily living? No 05/22/2024 Housing Stability Vital Sign Answer Marvin e Recorded In the last 12 months, was t here a time when you were not able to pay the mortgage or rent on time? No 05/22/2024 In the past 12 months, how m any times have you moved where you were living? 0 05/22/2024 At any time in the past 12 m [facility], were you homeless or living in a long term (including now)? No 05/22/2024 Physical Activity Answer Date Recorded On average, how many days pe r week do you engage in moderate to strenuous exercise (like a brisk walk)? 3 days 11/30/2024 On average, how many minutes do you exercise per day at this level? 10 min 11/30/2024 Education Answer Date Recorded What is the highest level of school you have completed or the highest degree you have received? Some college, no degree 05/22/2024 Comments No Sex and Gender Information Value Date Recorded Sex Assigned at Female 06/15/2023 3:57 PM EST Legal Sex Female 9:58 AM EST Gender Identity Female 06/15/2023 3:57 PM EST Sexual Orientation Heterosexual (straight) 06/15 3:57 PM EST Last Filed Vital Signs Vital Sign Reading Time Taken Comments Blood Pressure 110/72 12/01/2024 1:21 PM EDT Pulse 72 12/01/2024 1:21 PM EDT Temperature 36.2 C (97.1 F) 12/01/2024 1:21 PM EDT Respiratory Rate 16 12/01/2024 1:21 PM EDT Oxygen Saturation 96% 12/01/2024 1:21 PM EDT Inhaled Oxygen Concentration - - Weight 107 kg (235 lb 6.4 oz) 12/01/2024 1:21 PM EDT Height 160 cm (5' 3 ) 12/01/2024 1:21 PM EDT Body Mass Index 41.7 12/01/2024 1:21 PM EDT Plan of Treatment Upcoming Encounters Date Type Department Care Team (Late st Contact Info) Description 06/05/2025 9:30 AM EST Office Visit [address] [phone] Audra Roca PA-C [address] [place] [address] 01/08/2026 8:30 AM EDT Office Visit [address] [phone] Audra Roca PA-C [address] [place], [place] [id number] Health Maintenance Due Date Last Done Comments Pneumococcal Vaccines 50+ (1 of 2 - PCV) 1986 Zoster (Shingles) Vaccine (1 of 2) 2017 Influenza Vaccine 12/23/2024 Physical 12/01/2025 12/01/2024, 10/26/2023 Pap Smear (Ages 21-65) 05/21/2026 (Previously Completed) Mammogram 12/21/2026 12/21/2024, 0509/2022 (Previously Completed) Colonoscopy 06/24/2027 06/24/2022 (Prev iously Completed) DTaP/Tdap/Td Vaccines (2 - Tdap) 10/23/2032 10/24/19 COVID-19 Vaccine Discontinued HIV Screening Discontinued Hepatitis B Vaccines Discontinued Hepatitis C Virus Screening Discontinued Procedures Procedure Name Priority Date/Time Associated Diagnosis Comments IMAGING BREAST/BX/MAMMO Routine 12/21/2024 11:22 AM EDT HEMOGLOBIN A1C Routine 12/08/2024 Morbid obesity (HCC) LIPID PANEL WITH NONHDL Routine 12/08/2024 Annual physical exam Mild persistent asthma without complication History of colon polyps Family history of colon cancer 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 Other hyperlipidemia Primary hypertension Morbid obesity (HCC) Nonischemic cardiomyopathy (HCC) SHANNON (obstructive sleep apnea) History of tobacco use Elevated LFTs Bee sting allergy Seasonal allergic rhinitis, unspecified trigger TSH REFLEX TO FREE T4 Routine 12/08/2024 Annual physical exam Mild persistent asthma without complication History of colon polyps Family history of colon cancer 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 Other hyperlipidemia Primary hypertension Morbid obesity (HCC) Nonischemic cardiomyopathy (HCC) SHANNON (obstructive sleep apnea) History of tobacco use Elevated LFTs Bee sting allergy Seasonal allergic rhinitis, unspecified trigger VITAMIN D, 25-HYDROXY Routine 12/08/2024 Annual physical exam Mild persistent asthma without complication History of colon polyps Family history of colon cancer 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 Other hyperlipidemia Primary hypertension Morbid obesity (HCC) Nonischemic cardiomyopathy (HCC) SHANNON (obstructive sleep apnea) History of tobacco use Elevated LFTs Bee sting allergy Seasonal allergic rhinitis, unspecified trigger HEPATIC FUNCTION PANEL Routine 12/08/2024 Annual physical exam Mild persistent asthma without complication History of colon polyps Family history of colon cancer 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 Other hyperlipidemia Primary hypertension Morbid obesity (HCC) Nonischemic cardiomyopathy (HCC) SHANNON (obstructive sleep apnea) History of tobacco use Elevated LFTs Bee sting allergy Seasonal allergic rhinitis, unspecified trigger BASIC METABOLIC PANEL Routine 12/08/2024 Annual physical exam Mild persistent asthma without complication History of colon polyps Family history of colon cancer 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 Other hyperlipidemia Primary hypertension Morbid obesity (HCC) Nonischemic cardiomyopathy (HCC) SHANNON (obstructive sleep apnea) History of tobacco use Elevated LFTs Bee sting allergy Seasonal allergic rhinitis, unspecified trigger COMPLETE BLOOD COUNT, WITH DIFFERENTIAL Routine 12/08/2024 Annual physical exam Mild persistent asthma without complication History of colon polyps Family history of colon cancer 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 Other hyperlipidemia Primary hypertension Morbid obesity (HCC) Nonischemic cardiomyopathy (HCC) SHANNON (obstructive sleep apnea) History of tobacco use Elevated LFTs Bee sting allergy Seasonal allergic rhinitis, unspecified trigger URINALYSIS WITH MICROSCOPIC Routine 12/01/2024 2:12 PM EDT Dysuria URINE CULTURE Routine 12/01/2024 2:12 PM EDT Dysuria from Last 3 Months Results * Imaging Breast/Bx/Mammo Result (12/21/2024 11:22 AM EDT) Anatomical Region Laterality Modality Other us Scan Obstetrics And Gynecology IMG LEGACY PROCED URES Edited Result - Final * TSH REFLEX FREE T4 (12/08/2024) TSH, Highly Sensitive 3.390 MIU/L [facility] Blood specimen / Unknown 12/08/2024 us Audra Roca PA-C LAB BLOOD ORDERABLE S Final Result [facility] * Lipid panel with nonHDL (12/08/2024) Blood Blood specimen / Unknown 12/08/2024 us Audra Armando Chanelle WHITE-C LAB BLOOD ORDERABLE S Final Result Performing Organization Address [facility] de Phone Number [facility] * Complete Blood Count, with Differential (12/08/2024) Blood specimen / Unknown 12/08/2024 us Audra Armando Chanelle WHITE-C LAB BLOOD ORDERABLE S Final Result Performing Organization Address [facility] de Phone Number [facility] * VITAMIN D, 25-HYDROXY (12/08/2024) Blood specimen / Unknown 12/08/2024 Audra Armando Chanelle WHITE-C LAB BLOOD ORDERABLE S Final Result Performing Organization Address [facility] de Phone Number [facility] * Hemoglobin A1c (12/08/2024) Pathologist [facility] Hemoglobin A1C 5.8 % [facility] Blood Blood specimen / Unknown 12/08/2024 Audra Lloydvivi WHITE-C LAB BLOOD ORDERABLE S Final Result Performing Organization Address [facility] de Phone Number [facility] * HEPATIC FUNCTION PANEL (12/08/2024) Blood specimen / Unknown 12/08/2024 Audra Lloydvivi WHITE-C LAB BLOOD ORDERABLE S Final Result Performing Organization Address [facility] de Phone Number [facility] * Basic Metabolic Panel (12/08/2024) Blood specimen / Unknown 12/08/2024 Audra Armando Chanelle WHITE-C LAB BLOOD ORDERABLE S Final Result Performing Organization Address [facility] de Phone Number [facility] * Urinalysis with Microscopic (12/01/2024 2:12 PM EDT) Pathologist [facility] Color YELLOW YELLOW [facility] Clarity CLEAR CLEAR [facility] Specific [place] 1.013 1.001 - 1.035 [facility] pH 6.5 5.0 - 8.0 [facility] Glucose, Urine, Random NEGATIVE NEGATIVE [facility] Bilirubin NEGATIVE NEGATIVE [facility] Ketones NEGATIVE NEGATIVE [facility] Blood NEGATIVE NEGATIVE [facility] Protein NEGATIVE NEGATIVE [facility] Nitrite NEGATIVE NEGATIVE [facility] Leukocyte Esterase NEGATIVE NEGATIVE [facility] WBC NONE SEEN < OR = 5 /HPF [facility] RBC NONE SEEN < OR = 2 /HPF [facility] Squamous Epithelial Cells NONE SEEN < OR = 5 /HPF [facility] Bacteria NONE SEEN NONE SEEN /HPF [facility] Hyaline Cast NONE SEEN NONE SEEN /LPF [facility] Note [facility] Comment: This urine was analyzed for the presence of WBC, RBC, bacteria, casts, and other formed elements. Only those elements seen were reported. Urine Urine specimen / Unknown 12/01/2024 2:12 PM EDT 12/02/2024 3:44 AM EDT Audra Roca PA-C URINE ORDERABLES Fi nal Result [facility] [address] [place] [address] * Urine Culture (12/01/2024 2:12 PM EDT) Culture SEE NOTE [facility] Comment: CULTURE, URINE, ROUTINE Micro Number: [id number] Test Status: Final Specimen Source: Urine Specimen Quality: Adequate Result: Mixed genital rm isolated. These superficial bacteria are not indicative of a urinary tract infection. No further organism identification is warranted on this specimen. If clinically indicated, recollect clean-catch, mid-stream urine and transfer immediately to Urine Culture Transport Tube. 12/01/2024 2:12 PM EDT 12/02/2024 3:44 AM EDT Audra Roca PA-C LAB AMB MICRO ORDER TRACEE Final Result [facility] [address] [place] [address] from Last 3 Months Insurance [facility] PPO Care Teams Edge Beader Relationship Specialty Start Date End Date Audra Roca PA-C [address] [place] [address] PCP - General Internal Medicine 06/26/23 Marixa Rothman NP [address] [facility] [address] [place] [address] Referring Provider 10/26/23 Carlos Vasquez MD [address] [facility] [address] [place] [address] Referring Provider Gastroenterology 10/26/23 Sandra Thurston Physician Cardiology-Scan 10/19/23
== END 2025-03-03 09:20 | disposition home or self-care (01) ==
LOC: HO.HPS 08:48
PROVIDERS: PCP Physician Assistant Medical; Visit Provider Hospitalist
DX: J45.20 Mild intermittent asthma, uncomplicated (principal); R05.3 Chronic cough; G47.33 Obstructive sleep apnea (adult) (pediatric); I42.8 Other cardiomyopathies
CPT/HCPCS: 99214